=== PATIENT | male | born 1970 | race Caucasian/White ===

== ENCOUNTER → 2021-03-20 09:41 | Outpatient (BNVA) | payer MEDICARE, MEDICAID, SELFPAY | PROVIDERS: PCP Internal Medicine; Visit Provider Anesthesiology | DX: M46.1 Sacroiliitis, not elsewhere classified (principal); M96.1 Postlaminectomy syndrome, not elsewhere classified; G89.4 Chronic pain syndrome | CPT/HCPCS: 99202 ==

== ENCOUNTER 2021-04-25 06:35 | Outpatient (REF) | payer MEDICARE, MEDICAID, SELFPAY | END 2021-04-25 06:36 | disposition home or self-care (01) | LOC: HO.RADIR 06:35 | PROVIDERS: Visit Provider Anesthesiology | DX: Z13.89 Encounter for screening for other disorder (principal) | CPT/HCPCS: J3300; Q9967 ==

== ENCOUNTER 2021-05-23 06:28 | Outpatient (REF) | payer MEDICARE, MEDICAID, SELFPAY | END 2021-05-23 06:29 | disposition home or self-care (01) | LOC: HO.RADIR 06:28 | PROVIDERS: Visit Provider Anesthesiology | DX: Z13.89 Encounter for screening for other disorder (principal) ==

== ENCOUNTER 2025-06-28 14:21 | Outpatient (AMB) | payer MEDICARE, MEDICAID, SELFPAY ==
--- OUTSIDE RECORDS SUMMARY | 2024-04-15 07:34 | XMS_ITS | Encounter Summary ---
Author Organization [facility] Address [address] [place] [address] Care Team Providers Care Automated Process Operator Name Role Phone Tatyana Farias DO Primary Care Pro vider Encounter Details Date Type Department Care Team (Late st Contact Info) Description 04/15/2024 8:34 AM EDT Hospital Encounter TH HISTORIC ENCOUNTERS EASTERN CONVERSION ONLY Jennifer Cornelius MD [address] [place] [address] Social History Tobacco Use Types Packs/Day Years Used Date Smoking Tobacco: Never Smokeless Tobacco: Never Alcohol Use Standard Drinks/Week Comments No 0 (1 standard drink = 0.6 oz pur e alcohol) Housing Instability Answer Date Recorde d Are you worried that in the next 2 months you may not have stable housing? No 05/12/2025 Food Access & Nutrition Answer Date Rec orded Do you have access to a vari ety of food including fruits and vegetables? No 05/12/2025 Health Literacy Answer Date Recorded How often do you need to hav e someone help you when you read instructions, pamphlets, or other written material from your doctor or pharmacy? Never 05/12/2025 Caregiver: How often do you need to have someone help you when you read instructions, pamphlets, or other written material from your doctor or pharmacy? Not on file 05/12/2025 Financial Risk Answer Date Recorded How hard is it for you to pa y for the very basics like food, housing, medical care, and air conditioning / heating? Not very hard 05/12/2025 Transportation Answer Date Recorded Has the lack of transportati on kept you from meetings, work, or from getting things needed for daily living? No Has the lack of transportati on kept you from medical appointments or from getting medications? No 05/12/2025 Social Isolation Answer Date Recorded How often do you feel lonely or isolated from th ose around you? Never 05/12/2025 Food Risk Answer Date Recorded Within the past 12 months we worried whether our food would run out before we got money to buy more. Never true 05/12/2025 Within the past 12 months th e food we bought just didn't last and we didn't have money to get more. Never true 05/12/2025 Dependent Care Answer Date Recorded Do you need help finding or paying for care for your loved ones. For example, director of early childhood education or elderly care for an older adult? No 05/12/2025 Education Answer Date Recorded Do you think completing more education or training, like finishing a GED, going to college, or learning a trade, would be helpful for you? No 05/12/2025 Employment and Income Answer Date Recor ded During the last four weeks, have you been actively looking for work? No 05/12/2025 Living Situation Answer Date Recorded What is your living situation? Unrecognized valu e 05/12/2025 Sex and Gender Information Value Date Recorded Sex Assigned at Male 05/13/2025 10:03 AM EST Legal Sex Male 11:46 PM EST Gender Identity Not on file Sexual Orientation Not on file documented as of this encounter Last Filed Vital Signs Vital Sign Reading Time Taken Comments Blood Pressure 151/91 04/15/2024 8:59 AM EDT Sit ting Left arm Pulse 76 04/15/2024 8:59 AM EDT Temperature - - Respiratory Rate - - Oxygen Saturation - - Inhaled Oxygen Concentration - - Weight 100 kg (221 lb) 04/15/2024 8:59 AM EDT Height 170.2 cm (5' 7 ) 04/15/2024 8:59 AM EDT Body Mass Index 34.61 04/15/2024 8:59 AM EDT documented in this encounter Progress Notes * Jennifer Cornelius MD - 04/15/2024 9:00 AM EDT HPI: Chandrakant Garcia is a 54 y.o. year old male referred to our center by Lonny Gtz DO for evaluation and management of Rt sided bells palsy 54 yo male with PMH Hypertension is better now on amlodipine and hydrochlorothiazide he says ,systolic in the 140 range , anxiety , bipolar type 1, cervical , lumbar degenerative disc disease s/p multiple surgeries, referred to our clinic for evaluation of persistent weakness following Lujan's palsy in February he woke up at 3 am he had pain in his neck he was taking shower , he noticed his Rt face weakness , involvingRt eye and, patient went to the ER to be evaluated he was sent home on prednisone and Valtrex. Still has weakness and right side of the face had difficulty closing his eyes as well as facial asymmetry Patient denies any infection prior to the episode he also denies any He denies any episodes concerning for Lujan's palsy prior to this episodes He denies any symptoms associated with he is went to physical therapy to be evaluated and was handed excerices at home Patient denies any other episodes of blurry vision double vision tingling numbness or weakness any history concerning for stroke He has been struggling with paresthesias and weakness in relation to his multiple cervical and lumbar degenerative disc disease. Past Medical History: Diagnosis Date ??? Anxiety ??? Bipolar 1 disorder (HCC) ??? Cervicalgia ??? Chronic pain ??? Constipation ??? Depression ??? Elevated fasting glucose ??? Fatty liver ??? GERD (gastroesophageal reflux disease) ??? Hemangioma of liver ??? Hypertension ??? Microscopic hematuria ??? Myelomalacia (HCC) ??? Obesity Current Outpatient Medications Medication Sig Dispense Refill ??? Cholecalciferol (Vitamin D3) 50 MCG (1999 UT) TABS Take 1 tablet by mouth daily. ??? Docusate Sodium (DSS) 100 MG CAPS Bedtime ??? DULoxetine (CYMBALTA) DR capsule 30 mg Take 1 capsule (30 mg total) by mouth daily. ??? gabapentin (NEURONTIN) 300 MG capsule ??? hydroCHLOROthiazide (HYDRODIURIL) tablet 25 mg Take 1 tablet (25 mg total) by mouth daily. ??? ibuprofen 600 MG tablet Take 1 tablet (600 mg total) by mouth every 6 (six) hours as needed. ??? ibuprofen 800 MG tablet Take 1 tablet (800 mg total) by mouth. ??? omeprazole (PriLOSEC) 20 MG capsule Take 1 capsule (20 mg total) by mouth daily. ??? QUEtiapine (SEROquel) 100 MG tablet Take by mouth. ??? tiZANidine (ZANAFLEX) 4 MG tablet Take 1 tablet (4 mg total) by mouth. No current facility-administered medications for this visit. Allergies Allergen Reactions ??? Morphine Other (See Comments) Rapid heartbeat weakness Social history: Tobacco:No Alcohol No Drug use: No Used be painting cars , he is currently on disability Family history: There is no significant family history of multiple sclerosis, rheumatoid arthritis,type 1 diabetes, lupus, or other autoimmune diseases. Neurologic Exam: BP (!) 151/91 (BP Location: Left arm, Patient Position: Sitting) Pulse 76 Temp 96.6 ??F (35.9 ??C) (Temporal) Ht 5' 7 (1.702 m) Wt 100.2 kg (221 lb) BMI 34.61 kg/m?? MS: AOx3 CN: perrla,no red desaturation, fundoscopic exam normal bilaterally, V1-3 intact to LT, right facial weakness including slight weakness on right frontalis orbicularis oculi and orbicularis alex, bilateral SCM/trapezius 5/5, tongue/uvula/palate midline Motor: 4+/5 in all extremities limited by low back no Sensation: Intact to light touch, temperature, and vibration in all extremities Reflexes: 2+ in bilateral biceps and patellae, toes downgoing bilaterally Cerebellar: FNF intact bilaterally, FFM intact bilaterally, LOYD intact bilaterally, tandem gait normal, romberg negative Labs: CBC/CMP nonconcerning Ordered Imaging: All images were reviewed by me. A/P: Chandrakant Garcia is a 54 y.o. year old male referred to our center by Lonny Gtz DO for evaluation and management of Lujan's palsy with persistent right-sided facial weakness patient was treated with Valtrex and prednisone initially, he has been getting physical therapy and wasadvised for home exercises is doing eye care Discussed with the patient and his Lujan's palsy can last a few weeks to six months. Symptoms usually start to gradually improve in three weeks. Up to 80% of people fully recover and show no signs of Lujan's palsy within three months if his symptoms resolve persist will consider referring [facility] evaluation and management of possible intervention will obtain basic labs and inflammatory markers Will obtain an MRI brain to full any structural cause -Encouraged to continue exercises with physical therapy and home exercises toO Continue eye care at night lubricant consider patching his right eye -RTC in 3 months for follow up The patient and I discussed the clinical picture during today's appointment. Additional time was spent prior to the actual appointment reviewing records, lab values and imaging results and preparing documentation for today's visit. There was also time spent following the in person visit documenting, arranging for further diagnostic testing and follow-up appointments. The entire time spent in thisprocess was greater than 45minutes. The majority of the actual [id number] visit was spent counseling the patient with respect to the current neurological picture. Jennifer Cornelius MD documented in this encounter Plan of Treatment Upcoming Encounters Date Type Department Care Team (Late st Contact Info) Description 11/11/2025 8:30 AM EDT Office Visit [facility] [place] [address] [facility] [address] [place] [phone] Jennifer Cornelius MD [address] [place] [address] 12/13/2025 11:00 AM EDT Office Visit Internal Medicine - [place] [address] [facility] [address] [place] [id number] Debora Pinedo MD [address] [place] [phone] documented as of this encounter Visit Diagnoses Not on filedocumented in this encounter Care Teams Automated Process Operator Relationship Specialty Start Date End Date Tatyana Farias DO PCP - General 04/15/24 05/20/24 documented as of this encounter
--- OUTSIDE RECORDS SUMMARY | 2024-04-17 06:45 | XMS_ITS | Encounter Summary ---
Author Organization [facility] Address [address] [place] [address] Care Team Providers Care Administration Manager Name Role Phone Tatyana Fraias DO Primary Care Pro vider Encounter Details Date Type Department Care Team (Late st Contact Info) Description 04/17/2024 7:45 AM EDT Hospital Encounter TH HISTORIC ENCOUNTERS EASTERN CONVERSION ONLY Neal Hodges MD [address] [place] [address] Social History Tobacco Use Types Packs/Day Years [...] care for your loved ones. For example, children teacher or elderly care for an older adult? [...] Sign Reading Time Taken Comments Blood Pressure - - Pulse - - Temperature - - Respiratory Rate - - Oxygen Saturation - - Inhaled Oxygen Concentration - - Weight 100 kg (221 lb) 04/15/2024 8:59 AM EDT Height 170.2 cm (5' 7 ) 04/15/2024 8:59 AM EDT Body Mass Index 34.61 04/15/2024 8:59 AM EDT documented in this encounter Plan of Treatment Upcoming Encounters Date Type Department Care Team (Late st Contact Info) Description 11/11/2025 8:30 AM EDT Office Visit [address] [place] [address] Jennifer Cornelius MD [address] [place] [address] 12/13/2025 11:00 AM EDT Office Visit Internal Medicine - [place] [address] [facility] [address] [place] [address] Debora Pinedo MD [address] [place] [address] documented as of this encounter Visit Diagnoses Not on filedocumented in this encounter Care Teams Administration Manager Relationship Specialty Start Date End Date Tatyana Farias DO PCP - General 04/15/24 05/20/24 documented as of this encounter
[2025-06-28 14:26] VITALS: BMI 34.5
--- NOTE | 2025-06-28 14:26 | A.PHYSOV_ITS ---
Vital Signs 06/28/25 14:26 Height 5 ft 7 in Weight 220 lb BMI 34.5 Intake Visit Reasons: updated ref- chronic midline LBP Intake Note: Patient is a 55 year old male here for lower back pain. Scraper Operator Required: No Allergies morphine (MORPHINE) Allergy (Unknown, Verified 06/28/25 14:34) PALPATATIONS HPI Comments Details: History of Present Illness The patient is a 55 year old male presenting with persistent heavy back pain. The pain radiates into his leg and joint, as well as the groin, and he reports associated balance difficulties. He rates his current pain as a 6 out of 10. For treatment, he has tried ibuprofen 800 mg and gabapentin, neither of which provided relief. He received an injection about a year ago which provided approximately 50% pain relief. He reports an allergy to morphine and has taken prednisone in the past, after which he felt bloated. Patient has been completing physician directed home exercise plan without relief of his symptoms. This point he has failed conservative treatment. His past surgical history includes three surgeries on his neck, with the last one in 2013. He denies any history of diabetes. Most of his pain on presentation is higher in the L1-2, L2-3 area on the right. Pain Description - Location: The patient reports pain in his back that radiates to his leg and joint, as well as his groin. - Laterality: Symptoms are worse on the right side compared to the left. - Severity: The patient rates his current pain as 6 out of 10. - Quality: The pain is described as heavy and he experiences a hot sensation with pain radiating down the leg. - Exacerbating factors: Leaning back and straightening the leg cause an increase in pain. - Alleviating factors: A previous injection provided approximately 50% relief. Results - Procedural: A prior injection provided 50% pain relief. - Imaging: An older MRI is noted to show pathology that is worse higher up in the lumbar spine. [facility] Medical History (Updated 06/28/25 @ 14:56 by PRADEEP Ortez) Chronic pain syndrome Postlaminectomy syndrome, lumbar region Postlaminectomy syndrome of cervical region Sacroiliitis Surgical History History of neck surgery History of back surgery Social History (Reviewed 06/28/25 @ 14:34 by DORY Flynn Alcohol intake: current Alcohol intake frequency: does not drink Patient Tobacco Use Status: Never used Tobacco Review of Systems Narrative Review of Systems - Musculoskeletal: Reports back pain, pain in his leg and joint, and groin pain. - Neurological: Reports difficulty with balance. Reports a hot sensation with pain that travels down the leg. - Endocrine: Denies diabetes. - Allergic/Immunologic: Reports allergy to morphine. Physical Exam Exam Exam: Physical Exam - General: The patient is alert and cooperative. - Back: Patient identifies a palpable mass-like area in the midline lumbar spine with associated tenderness to palpation. Lumbar extension elicits pain with radiation into the leg. - Lower Extremities: Sensation was grossly assessed bilaterally. Motor function is grossly intact with foot and thigh movements. Seated straight leg raise is positive for back pain. Supine hip flexion and abduction/external rotation maneuvers elicit back pain. Vital Signs: BMI result Body Mass Index 34.5 Assessment & Plan Assessment & Plan (1) Postlaminectomy syndrome, lumbar region: Code(s): M96.1 - Postlaminectomy syndrome, not elsewhere classified Category: Medical (2) Postlaminectomy syndrome of cervical region: Code(s): M96.1 - Postlaminectomy syndrome, not elsewhere classified Category: Medical (3) Sacroiliitis: Code(s): M46.1 - Sacroiliitis, not elsewhere classified Category: Medical (4) Right hip pain: Code(s): M25.551 - Pain in right hip Category: Medical Plan Pain Management - Analgesia: The patient reports currently taking ibuprofen 800 mg and gabapentin with no relief. - A prior injection about a year ago provided 50% pain relief. - He rates his current pain level at a 6 out of 10. - Adverse Effects: He reports an allergy to morphine and a history of feeling bloated with prednisone. - Activities of Daily Living: The patient reports that his balance is affected. Plan Patient was informed and verbally consented to the use of an ambient scribe for clinic note documentation during this visit. 1. Chronic Low Back Pain With Radiculopathy The patient's persistent low back pain, radicular symptoms, and physical exam findings are concerning for a worsening underlying spinal condition. The location of his current pain does not seem to correlate with the findings on his previous MRI, and the previous injection may not have been in the optimal location. An updated lumbar spine MRI will be ordered to better visualize the current pathology before considering further interventions. A short, 7-day prescription for an opioid will be provided for severe breakthrough pain, with counseling to use it sparingly. Follow-up will occur after the MRI is complete to review the results and determine the best location for a potential future injection. 2. Right Hip Pain The patient reports groin pain and has pain elicited with hip maneuvers on exam, suggesting possible concomitant hip pathology. An x-ray of the right hip will be ordered to evaluate for intrinsic hip disease. Discussion Notes I had a discussion with the patient regarding his chronic back pain. I explained that while he had some relief from a prior injection, I believe we could achieve a better result with a more targeted approach. I recommended obtaining an u pdated MRI of his lumbar spine and an x-ray of his right hip to get a clearer picture of his current condition before proceeding with another injection. I explained that this would allow us to place the next shot in a more effective spot. For immediate pain management, I offered a 7-day prescription for a stronger pain medication, advising him to use it sparingly for severe pain to make it last. The patient verbalized understanding and agreed with the plan. Patient Instructions - We have ordered an MRI of your lower back and an X-ray of your right hip. Please get these scans done as soon as possible. - We are prescribing a strong pain medication for you. This is a 7-day supply. Please use this only for severe pain when other medications like ibuprofen do not work. Try to use it sparingly so that it lasts as long as possible. - After your MRI is complete, please schedule a follow-up appointment with us to go over the results and discuss the next steps for your treatment. - Continue your other current medications, such as ibuprofen, as you normally would. Orders: Orders MR lumbar spine wo/w con Today M51.16 - Intervertebral disc disorders with radiculopathy, lumbar region XR hip RT min 2V 06/28/25 M16.10 - Unilateral primary osteoarthritis, u nspecified hip MR lumbar spine wo/w con 06/28/25 M51.16 - Intervertebral disc disorders with radiculopathy, lumbar region Medications: New oxycodone-acetaminophen 5-325 mg (Percocet) Partial Fill upon patient request. 1 tab PO Q6H PRN 28 tabs 0RF pain 7 days M25.551 - Pain in right hip, M96.1 - Postlaminectomy syndrome, not elsewhere classified Coding Level of Care Code Est Pt Level 4 (03919) Diagnoses Postlaminectomy syndrome, lumbar region M96.1 Postlaminectomy syndrome of cervical region M96.1 Sacroiliitis M46.1 Right hip pain M25.551
--- OUTSIDE RECORDS SUMMARY | 2025-06-28 17:48 | XMS_ITS | Clinical Summary ---
Author Organization [facility] Address [address] [place] [address] Phone Care Team Providers Care Display Carver Name Role Phone Debora Pinedo MD Primary Care Provider [phone] Allergies Active Allergy Reactions Criticality Noted Date Comments Morphine Other 12/02/2008 Rapid heartbeat weakness Medications docusate sodium (COLACE) 100 mg capsule Bedtime 09/27/19 10 Active ibuprofen (ADVIL,MOTRIN ) 600 mg tablet Take 1 tablet (600 mg total) by mouth if needed for moderate pain or headaches. Active QUEtiapine (SEROquel) 100 mg tablet Take by mouth. 05/26/20 18 Active tiZANidine (ZANAFLEX) 4 mg tablet Take 1 tablet (4 mg total) by mouth. 03/23/20 21 Active omega-3 acid ethyl esters (LOVAZA) 1 gram capsule Take 1 capsule (1 g total) by mouth 2 (two) times a day. Active LORazepam (Ativan) 0.5 mg tablet 1 po at onset of MRI, may repeat 1 at time of MRI if needed 5 tablet 07/22/19 25 Active Additional Information Patient taking differently: 0.5 mg oral As needed, sedation, 1 po at onset of MRI, may repeat 1 at time of MRI if needed, Reported on 05/14/2025 cholecalcifer ol (VITAMIN D-3) 50 mcg (2,000 unit) tablet Take 1 tablet (2,000 Units total) by mouth 1 (one) time each day. 30 tablet 1 11/24/19 25 Active Stimulant Laxative Plus 8.6-50 mg per tablet TAKE 1 TABLET BY MOUTH DAILY 30 tablet 1 03/22/20 25 Active clotrimazole (LOTRIMIN) 1 % cream Apply topically 2 (two) times a day. 30 g 11 05/12/20 25 026 Active buPROPion SR (WELLBUTRIN SR) 100 mg 12 hr tablet Take 1 tablet (100 mg total) by mouth 2 (two) times a day. 05/04/20 25 Active carboxymethyl cellulose 1 % ophthalmic solution Apply 1 drop to each eye as needed 30 mL 12 05/14/20 25 Active ketoconazole (NIZORAL) 2 % cream Apply topically 2 (two) times a day. 30 g 2 05/18/20 25 Active hydroCHLOROth iazide (HYDRODIURIL) 25 mg tablet Take 1 tablet (25 mg total) by mouth 1 (one) time each day. 90 tablet 1 06/11/20 25 Active omeprazole (PriLOSEC) [address] capsule Take 1 capsule (20 mg total) by mouth 1 (one) time each day. 90 capsule 06/11/20 25 Active amLODIPine (NORVASC) 10 mg tabletIndicat ions:HTN (hypertension ), benign Take 1 tablet (10 mg total) by mouth 1 (one) time each day. 90 tablet 3 06/11/20 25 Active gabapentin (NEURONTIN) 300 mg capsule Take 1 capsule (300 mg total) by mouth 3 (three) times a day. 90 capsule 3 06/11/20 25 Active DULoxetine (CYMBALTA) [address] capsule Take 1 capsule (30 mg total) by mouth 1 (one) time each day. 90 capsule 1 06/11/20 25 Active cholecalcifer ol (Vitamin D3) 50 mcg (2,000 unit) tablet Take 1 tablet (2,000 Units total) by mouth 1 (one) time each day. 90 tablet 2 06/11/20 25 Active meloxicam (MOBIC) 7.5 mg tablet Take 1 tablet (7.5 mg total) by mouth 1 (one) time each day. 30 each 2 06/11/20 25 Active DULoxetine (CYMBALTA) [address] capsule TAKE 1 CAPSULE BY MOUTH DAILY 90 capsule 1 06/22/20 24 025 Discontinued(Re order) amLODIPine (NORVASC) 10 mg tabletIndicat ions:HTN (hypertension ), benign TAKE 1 TABLET BY MOUTH DAILY 90 tablet 3 08/17/19 25 025 Discontinued(Re order) omeprazole (PriLOSEC) [address] capsule Take 1 capsule (20 mg total) by mouth 1 (one) time each day. 90 capsule 11/20/19 25 025 Discontinued(Re order) gabapentin (NEURONTIN) 300 mg capsule Take 1 capsule (300 mg total) by mouth 3 (three) times a day. 90 capsule 3 11/20/19 25 025 Discontinued hydroCHLOROth iazide (HYDRODIURIL) 25 mg tablet TAKE 1 TABLET(25 MG) BY MOUTH 1 TIME EACH DAY 90 tablet 1 12/11/19 25 025 Discontinued(Re order) cholecalcifer ol (Vitamin D3) 50 mcg (2,000 unit) tablet Take 1 tablet (2,000 Units total) by mouth 1 (one) time each day. 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 HTN (hypertension), benign 07/28/2024 Gastroesophageal reflux disease without esophagi tis 07/28/2024 Chronic midline low back pain without sciatica 0 07/28/2024 Obesity (BMI 30.0-34.9) 07/28/2024 Encounters Date Type Department Care Team Description 06/11/2025 3:00 PM EST Office Visit Internal Medicine - [address] [place] [phone] Debora Pinedo MD Chronic midline low back pain without sciatica (Primary Dx); HTN (hypertension), benign; Gastroesophageal reflux disease without esophagitis; Lujan's palsy 05/18/2025 Telephone Internal Medicine - [address] [place] [phone] Mery Ontiveros MA 05/14/2025 8:30 AM EST Office Visit [facility] 175 [facility] [address] [place] [phone] Ethel Farnsworth PA Lujan's palsy (Primary Dx) 05/14/2025 7:50 AM EST Lab Draw Station - [address] [facility] [address] [facility] [address] [place] [phone] Medicare annual wellness visit, initial; Prediabetes; Encounter for lipid screening for cardiovascular disease; Dyslipidemia 05/14/2025 Results Follow-Up Internal Medicine - [place] 175 [facility] [address] [place] [address] Nicho Newell MD 05/12/2025 3:15 PM EST Office Visit Internal Medicine [facility] 175 [facility] [address] [place] [phone] Nicho Newell MD Medicare annual wellness visit, initial (Primary Dx); Routine general medical examination at a health care facility; HTN (hypertension), benign; Obesity (BMI 30.0-34.9); Gastroesophageal reflux disease without esophagitis; Other fatigue; Encounter for lipid screening for cardiovascular disease; Other abnormal glucose; Anxiety associated with depression; Bipolar 1 disorder (CMS/HCC V24, CMS/HCC V28); Constipation, unspecified constipation type; Prediabetes; Chronic midline low back pain without sciatica; Dyslipidemia; Hemangioma of liver; Lujan's palsy; Onychomycosis; Fungal infection 04/01/2025 Telephone Internal Medicine - [place] 175 [facility] [address] [place] [phone] Nilsa Michelle MA from Last 3 Months Surgical History Surgery Date Site/Laterality Comments NECK SURGERY Anterior PROCEDURE:NECK SURGERY;COMMENT:X3 last 2017 BACK SURGERY Anterior PROCEDURE:BACK SURGERY APPENDECTOMY PROCEDURE:APPENDECTOMY LEG SURGERY PROCEDURE: HISTORICAL LEG SURGERY; COMMENT: multiple stitches as a child APPENDECTOMY 2000 PROCEDURE: HISTORICAL APPENDECTOMY CERVICAL LAMINECTOMY 2009 PROCEDURE: HISTORICAL CERV LAMINECTOMY; COMMENT: C 3-6 ACDF BACK SURGERY 2010 PROCEDURE: HISTORICAL BACK SURGERY; COMMENT: L2 - L 3 lumbar fusion. L 5- S 1 fusion 2010 COLONOSCOPY 06/14/14 PROCEDURE: HISTORICAL COLONOSCOPY; COMMENT: 2 pale dimin. polyps at 15cm-> hyperplastic CERVICAL LAMINECTOMY 06/2013 PROCEDURE: HISTORICAL CERV LAMINECTOMY; COMMENT: ACDF C6-7 Medical History Medical History Date Comments GERD (gastroesophageal reflux disease) DX:GERD (gastroesophageal reflux disease) Chronic pain DX:Chronic pain Depression DX:Depression Elevated fasting glucose DX:Elev ated fasting glucose Obesity DX:Obesity Hemangioma of liver DX:Hemangiom a of liver Myelomalacia (CMS/HCC V24, C MS/HCC V28) DX:Myelomalacia (HCC) Microscopic hematuria DX:Microsc opic hematuria Fatty liver DX:Fatty liver Constipation DX:Constipation Hypertension DX:Hypertension Anxiety DX:Anxiety Bipolar 1 disorder (CMS/HCC V24, CMS/HCC V28) DX:Bipolar 1 disorder (HCC) Cervicalgia DX:Cervicalgia Cervicalgia DX:Cervicalgia HTN (hypertension) 09/18/2013 DX:HTN (hyper tension) Abnormal LFTs (liver function tests) 11/28/2016 DX:Abnormal LFTs (liver function tests) Anxiety and depression 04/21/2013 DX:Anxiet y and depression Bipolar disorder (CMS/HCC V2 4, CMS/HCC V28) 03/24/2009 DX:Bipolar disorder (HCC) Constipation 03/22/2014 DX:Constipation Lumbar disc herniation 12/23/2008 DX:Lumbar disc herniation; COMMENT: Lumbar fusion 2010 Dr Sullivan Microscopic hematuria 11/28/2016 DX:Microsc opic hematuria Panic attacks 04/21/2013 DX:Panic attacks ; COMMENT: [facility] Myelomalacia (CMS/HCC V24, C MS/HCC V28) 12/07/2016 DX:Myelomalacia (HCC); COMME NT: C 3-4, C 4-5 Fatty liver DX:Fatty liver Hemangioma of liver 03/30/2019 DX:Hemangiom a of liver Pulmonary nodule 03/30/2019 DX:Pulmonary no dule; COMMENT: Newly noted on CT 02/13/2019. 0.3 cm Left Lung Base. Per Fleischner Society guidelines optional f/u CT at 12 months if high risk patient (02/2020) Elevated liver function tests DX :Elevated liver function tests Family History Medical History Relation Name Comments Lung cancer Father Coronary artery disease Mother Glau coma, Cataract, Blindness Other cancer Mother Relation Name Status Comments Brother 1 Alive HTN Brother 2 Alive Brother 3 Alive Brother 4 Alive Daughter Alive Father DM Mother DM Sister Alive DM Son Alive Social History Tobacco Use Types Packs/Day Years Used Date Smoking Tobacco: Never Smokeless Tobacco: Never Tobacco Cessation:Counseling Given: Not Answered Alcohol Use Standard Drinks/Week Comments No 0 [...] care for your loved ones. For example, child development director or elderly care for an older adult? [...] on file Sexual Orientation Not on file Last Filed Vital Signs Vital Sign Reading Time Taken Comments Blood Pressure 136/84 06/11/2025 2:43 PM EST Pulse 83 06/11/2025 2:43 PM EST Temperature 36.4 C (97.5 F) 06/11/2025 2:43 PM EST Respiratory Rate - - Oxygen Saturation 98% 06/11/2025 2:43 PM EST Inhaled Oxygen Concentration - - Weight 102 kg (224 lb) 06/11/2025 2:43 PM EST Height 170.2 cm (5' 7 ) 01/25/2025 9:19 AM EDT Body Mass Index 35.08 01/25/2025 9:19 AM EDT Plan of Treatment Upcoming Encounters Date Type Department Care Team (Late st Contact Info) Description 11/11/2025 8:30 AM EDT Office Visit [facility] 175 [facility] [address] [place] [phone] Jennifer Cornelius MD [address] [place] [address] 12/13/2025 11:00 AM EDT Office Visit Internal Medicine [facility] 175 [facility] [address] [place] [phone] Debora Pinedo MD [address] [place] [phone] Health Maintenance Due Date Last Done Comments Drug Screen 1970 Non-Opioid Controlled Substance Agreement 1970 Hepatitis A Vaccines (1 of 2 - Risk 2-dose series) 1988 Hepatitis B Vaccines (1 of 3 - 19+ 3-dose series) 1988 Pneumococcal Vaccine: 50+ Years (2 of 2 - PCV) 2019 09/30/2009 RSV Immunization Adult Patients (1 - Risk 50-74 years 1-dose series) 2019 Zoster Vaccines (1 of 2) 2019 HIV Screening 06/16/2022 Hepatitis C Screening 06/16/2022 DTaP,Tdap,and Td Vaccines (2 - Td or Tdap) 02/13/2024 02/12/2014 COVID-19 Vaccine (2 - season) 2025 12/28/2020 Influenza Vaccine (#1) 2025 , 04/20/2016, 04/07/2015, Additional history exists Hypertension/CHF/CAD Annual BMP Blood Test 02/01/2026 02/01/2025, 07/21/2024 Colorectal Cancer Screening: FIT-DNA (Cologuard) 2026 2023 Medicare Annual Wellness Visit 05/12/2026 05/12/2025 Social Influencers of Health Screening 05/12/2026 05/12/2025 Cholesterol Screening (Lipid Panel) 05/14/2030 05/14/2025, 02/01/2025 Depression Screening Completed 05/12/2025 HIB Vaccines Aged Out No longer eligi ble based on patient's age to complete this topic HPV Vaccines Aged Out No longer eligi ble based on patient's age to complete this topic IPV Vaccines Aged Out No longer eligi ble based on patient's age to complete this topic MMR Vaccines Aged Out No longer eligi ble based on patient's age to complete this topic Meningococcal ACWY Vaccine Aged Out N o longer eligible based on patient's age to complete this topic Meningococcal B Vaccine Aged Out No l onger eligible based on patient's age to complete this topic RSV Immunization Patients Under 20 months Aged Out No longer eligible based on patient's age to complete this topic Varicella Vaccines Aged Out No longer eligible based on patient's age to complete this topic Procedures Procedure Name Priority Date/Time Associated Diagnosis Comments LIPID PANEL WITH REFLEX TO DIRECT LDL Routine 05/14/2025 7:47 AM EST Medicare annual wellness visit, initial Encounter for lipid screening for cardiovascular disease Dyslipidemia HEMOGLOBIN A1C Routine 05/14/2025 7:47 AM EST Medicare annual wellness visit, initial Prediabetes COMPREHENSIVE METABOLIC PANEL Routine 02/01/2025 1:19 PM EDT HTN (hypertension), benign Obesity (BMI 30.0-34.9) Hyperglycemia Screening for malignant neoplasm of prostate Frequent urination Vitamin D deficiency LAB COLOGUARD COLON CANCER SCREEN Routine 2023 12:51 PM EDT from Last 3 Months or Most Recently Relevant to Health Maintenance Results * (ABNORMAL) Lipid panel with reflex to direct LDL (05/14/2025 7:47 AM EST) Cholesterol 175 0 - 200 mg/dL LAB CHEMISTRY METHOD 05/14/2025 10:[address] [facility] Triglycerides 113 0 - 150 mg/dL LAB CHEMISTRY METHOD 05/14/2025 10:32 AM [facility] HDL 49 >=40 mg/dL LAB CHEMISTRY METHOD 05/14/2025 10:32 AM [facility] LDL Calculated 103(H) 0 - 100 mg/dL LAB CHEMISTRY METHOD 05/14/2025 10:[address] [facility] Comment:Estimated LDL Calcul ated using equation: Total cholesterol - HDL cholesterol - (Triglycerides/5) VLDL Cholesterol Isaac 22.6 mg/dL LAB CHEMISTRY METHOD 05/14/2025 10:[address] [facility] Non HDL Chol. (LDL+VLDL) 126 <145 mg/dL LAB CHEMISTRY METHOD 05/14/2025 10:[address] [facility] Chol/HDL Ratio 3.6 0.0 - 4.4 LAB CHEMISTRY METHOD 05/14/2025 10:32 AM [facility] Blood Venous blood specimen / Unknown Venipuncture / Unknown 05/14/2025 7:47 AM EST 05/14/2025 7:47 AM EST us Nicho Newell MD LAB BLOOD ORDERABLES Final Resul t [facility] [address] [place] [address], [place] [phone] * Hemoglobin A1c (05/14/2025 7:47 AM EST) [facility] Hemoglobin A1C 5.6 <6.5 % LAB CHEMISTRY METHOD 05/14/2025 11:[address] [facility] Mean Bld Glu Estim. 114 mg/dL LAB CHEMISTRY METHOD 05/14/2025 11:[address] [facility] Blood Venous blood specimen / Unknown Venipuncture / Unknown 05/14/2025 7:47 AM EST 05/14/2025 7:47 AM EST Nicho Newell MD LAB BLOOD ORDERABLES Final Resul t [facility] [address] [place] [address], * (ABNORMAL) Comprehensive metabolic panel (02/01/2025 1:19 PM EDT) [facility] Sodium 137 133 - 145 mmol/L LAB CHEMISTRY METHOD 02/01/2025 3:[address] [facility] Potassium 4.3 3.5 - 5.5 mmol/L LAB CHEMISTRY METHOD 02/01/2025 3:34 PM [facility] Chloride 105 96 - 110 mmol/L LAB CHEMISTRY METHOD 02/01/2025 3:[address] [facility] CO2 26 21 - 32 mmol/L LAB CHEMISTRY METHOD 02/01/2025 3:[address] [facility] Anion Gap 6 3 - 11 LAB CHEMISTRY METHOD 02/01[facility]25 [facility] Glucose 122(H) 70 - 100 mg/dL LAB CHEMISTRY METHOD 02/01/2025 3:34 PM [facility] BUN 15 5 - 25 mg/dL LAB CHEMISTRY METHOD 02/01/2025 3:[address] [facility] Creatinine 1.17 0.70 - 1.30 mg/dL LAB CHEMISTRY METHOD 02/01/2025 3:[address] [facility] eGFR 74 >=60 mL/min/1. 73m2 LAB CHEMISTRY METHOD 02/01/2025 3:[address] [facility] Comment:Calculation based on the Chronic Kidney Disease Epidemiology Collaboration (CKD-EPI) equation refit without adjustment for race. BUN/Creatinine Ratio 12.8 LAB CHEMISTRY METHOD 02/01/2025 3:[address] [facility] Calcium 9.3 8.5 - 10.5 mg/dL LAB CHEMISTRY METHOD 02/01/2025 3:[address] [facility] AST (SGOT) 18 10 - 42 unit/L LAB CHEMISTRY METHOD 02/01/2025 3:34 PM [facility] ALT (SGPT) 49 10 - 60 unit/L LAB CHEMISTRY METHOD 02/01/2025 3:34 PM [facility] Alkaline Phosphatase 81 42 - 121 unit/L LAB CHEMISTRY METHOD 02/01/2025 3:34 PM [facility] Total Protein 7.2 6.0 - 8.0 g/dL LAB CHEMISTRY METHOD 02/01/2025 3:34 PM [facility] Albumin 3.9 3.2 - 5.0 g/dL LAB CHEMISTRY METHOD 02/01/2025 3:34 PM [facility] Total Bilirubin 0.9 0.0 - 1.4 mg/dL LAB CHEMISTRY METHOD 02/01/2025 3:34 PM [facility] Blood Venous blood specimen / Unknown Venipuncture / Unknown 02/01/2025 1:19 PM EDT 02/01/2025 1:19 PM EDT us Debora Pineod MD LAB BLOOD ORDERABLES Final Res ult [facility] [address] [place] [address], * Cologuard?? colon cancer screening (2023 12:51 PM EDT) Debora Pinedo MD LAB MOLECULAR DIAGNOSTICS [facility] Final Result from Last 3 Months or Most Recently Relevant to Health Maintenance Insurance MEDICAID - [place] MEDICARE Care Teams Display Carver Relationship Specialty Start Date End Date Debora Pinedo MD 175 [facility] [address] [place] [phone] PCP - General Internal Medicine 05/21/24
--- OUTSIDE RECORDS SUMMARY | 2025-06-28 17:48 | XMS_ITS | Encounter Summary ---
Author Organization [facility] Address [address] [place] [phone] Phone Care Team Providers Care Harp Repairer Name Role Phone Unknown, Unknown MD Primary Care Provider Jame curiel Reason for Referral * Rehabilitation (Within 2 weeks) - Closed Specialty Diagnoses / Procedures Referred By Hong turner Referred To Contact Physical Medicine and Rehabilitation Diagnoses Encounter for consultation Claudia Grier MD Phone: tel: fax: mailto:[email or web address] Referral ID Status Reason Start Date Expiration Date Visits Re quested Visits Authorized [id number] Closed 09/21/2015 09/20/2016 1 1 Encounter Details Date Type Department Care Team (Latest Contact Info) Description 09/21/2015 Transcribe Orders [facility] Medical Walk-In [address] [place] [address], [address] [place] [address] Claudia Grier MD [address] [place] [phone] [email or web address] Encounter for consultation (Primary Dx) Social History Tobacco Use Types Packs/Day Years Used Date Smoking Tobacco: Never Assessed Sex and Gender Information Value Date Recorded Sex Assigned at Not on file Legal Sex Male 10:05 AM EST Gender Identity Not on file Sexual Orientation Not on file documented as of this encounter Plan of Treatment Scheduled Referrals Name Type Priority Associated Diagnoses Orde r Schedule Ambulatory referral to [facility] Physical Medicine and Rehab Outpatient Referral Routine Encounter for consultation Ordered: 09/21/2015 documented as of this encounter Visit Diagnoses Diagnosis Encounter for consultation- Primary documented in this encounter Care Teams Harp Repairer Relationship Specialty Start Date End Date Unknown, Unknown, MD PCP - General 08/02/15 documented as of this encounter Additional Source Comments The information contained in this document represents components of the legal health record. It is not the complete legal health record.[facility]
--- OUTSIDE RECORDS SUMMARY | 2025-06-28 17:48 | XMS_ITS | Clinical Summary ---
Author Organization [facility] Prior to 12/05/24 Address [address] [place] [address] Care Team Providers Care Manager Drive Name Role Phone Tatyana Gtz DO Primary Care P rovider Allergies Active Allergy Reactions Criticality Noted Date Comments Morphine Other (See Comments) 12/02/2008 Rapid heartbeat weakness Medications Medication Sig Dispensed Refills Start Date End Date Status QUEtiapine (SEROquel) 100 MG tablet Take by mouth. 0 05/26/2018 Active Cholecalciferol (Vitamin D3) 50 MCG (1999 UT) TABS Take 1 tablet by mouth daily. 0 03/17/2024 Active Docusate Sodium (DSS) 100 MG CAPS Bedtime 0 09/26/2009 Active DULoxetine (CYMBALTA) DR capsule 30 mg Take 1 capsule (30 mg total) by mouth daily. 0 10/01/2023 Active gabapentin (NEURONTIN) 300 MG capsule 0 03/21/2024 Active hydroCHLOROthiazide (HYDRODIURIL) tablet 25 mg Take 1 tablet (25 mg total) by mouth daily. 0 03/17/2024 Active ibuprofen 600 MG tablet Take 1 tablet (600 mg total) by mouth every 6 (six) hours as needed. 0 Active omeprazole (PriLOSEC) 20 MG capsule Take 1 capsule (20 mg total) by mouth daily. 0 04/26/2017 Active tiZANidine (ZANAFLEX) 4 MG tablet Take 1 tablet (4 mg total) by mouth. 0 03/23/2021 Active Social History Tobacco Use Types Packs/Day Years Used Date Smoking Tobacco: Never Assessed Tobacco Cessation:Counseling Given: Not Answered Sex and Gender Information Value Date Recorded Sex Assigned at Male 03/05/2024 9:52 AM EDT Gender Identity Not on file Sexual Orientation Not on file Job Start Date Occupation Industry Not on file Not on file Not on file Last Filed Vital Signs Vital Sign Reading Time Taken Comments Blood Pressure 151/91 04/15/2024 8:59 AM EDT Pulse 76 04/15/2024 8:59 AM EDT Temperature 35.9 C (96.6 F) 04/15/2024 8:59 AM EDT Respiratory Rate - - Oxygen Saturation 98% 03/30/2024 12:22 PM EDT Inhaled Oxygen Concentration - - Weight 100.2 kg (221 lb) 04/15/2024 8:59 AM EDT Height 170.2 cm (5' 7 ) 04/15/2024 8:59 AM EDT Body Mass Index 34.61 04/15/2024 8:59 AM EDT Plan of Treatment Health Maintenance Due Date Last Done Comments Hepatitis B Vaccines (1 of 3 - 3-dose series) 1969 Hepatitis C Screening 1969 Depression Screening 1981 BMI Counseling 1987 Preventative Health Evaluation 1987 Colon Cancer Screening (Colonoscopy) 2014 Shingrix-Zoster Vaccine (1 o f 2) 2019 DTap / Tdap / Td (2 - Td or Tdap) 02/13/2024 02/12/2014 COVID-19 Vaccine (2 - 2024-2 6 season) 2025 12/28/2020 Influenza Vaccine (#1) 2025 , 06/29/2009 Pneumococcal Vaccine Aged Out 09/30/2009 No long er eligible based on patient's age to complete this topic RSV Ped < 20 months Aged Out No longe r eligible based on patient's age to complete this topic Care Teams Manager Drive Relationship Specialty Start Date End Date Tatyana Gtz DO PCP - General Public Health Aide 05/14/17
--- OUTSIDE RECORDS SUMMARY | 2025-06-28 17:48 | XMS_ITS | Encounter Summary ---
Author Organization [facility] Address [address] [place] [address] Care Team Providers Care Proposal Editor Name Role Phone Debora Pinedo MD Primary Care Provider [phone] Encounter Details Date Type Department Care Team ([facility] st Contact Info) Description 05/14/2025 Results Follow-Up Internal Medicine - [place] [address] [facility] [address] [place] [phone] Nicho Newell MD [address] [place] [phone] Social History Tobacco Use Types Packs/Day Years [...] for your loved ones. For example, child care director or elderly care for an older [...] as of this encounter Plan of Treatment Upcoming Encounters Date Type Department Care Team (Late st Contact Info) Description 11/11/2025 8:30 AM EDT Office Visit [facility] [place] 175 [facility] [address] [place] [phone] Jennifer Cornelius MD [address] [place] [address] 12/13/2025 11:00 AM EDT Office Visit Internal Medicine [facility] 175 [facility] [address] [place] [address] Debora Pinedo MD [address] [place] [phone] documented as of this encounter Visit Diagnoses Not on filedocumented in this encounter Additional Health Concerns Assessment Noted Time PHQ-9 Depression Total Score: 1 05/12/20 25 3:42 PM EST A fall risk assessment has been complete d for the patient 05/12/2025 3:34 PM EST documented as of this encounter Care Teams Proposal Editor Relationship Specialty Start Date End Date Debora Pinedo MD [address] [place] [phone] PCP - General Internal Medicine 05/21/24 documented as of this encounter
--- OUTSIDE RECORDS SUMMARY | 2025-06-28 17:48 | XMS_ITS | Clinical Summary ---
Author Organization [facility] Address [address] [place] [id number] Phone Care Team Providers Care [employer] Principal Name Role Phone Unknown, Unknown Primary Care Provider Jame curiel Allergies Active Allergy Reactions Criticality Noted Date Comments Morphine Other (See Comments) 09/21/2015 weakness Social History Tobacco Use Types Packs/Day Years Used Date Smoking Tobacco: Never Assessed Sex and Gender Information Value Date Recorded Sex Assigned at Not on file Legal Sex Male 10:05 AM EST Gender Identity Not on file Sexual Orientation Not on file Last Filed Vital Signs Vital Sign Reading Time Taken Comments Blood Pressure 150/105 09/21/2015 1:07 PM EDT Pulse 105 09/21/2015 1:07 PM EDT Temperature 36.9 C (98.5 F) 09/21/2015 1:07 PM EDT Respiratory Rate - - Oxygen Saturation - - Inhaled Oxygen Concentration - - Weight - - Height - - Body Mass Index - - Plan of Treatment Not on file Medical Devices Not on file [facility] [place] & B [facility] A & [place] & B [facility] PART A & [place] A & B [facility] MEDICARE PART A & B Care Teams [employer] Relationship Specialty Start Date End Date Unknown, Unknown, PCP - General 08/02/15 Additional Source Comments The information contained in this document represents components of the legal health record. It is not the complete legal health record.[facility]
--- OUTSIDE RECORDS SUMMARY | 2025-06-28 17:49 | XMS_ITS ---
Author Name [facility] Organization Unknown Encounters Encounter Type Encounter Reason Primary Diagnosis Location Date Ambulatory [facility] 04/17/2024 Care Team Organization Name Specialty Phone Email Start Date End Da te [facility] ACO 02/24/2025 [facility] 10/31/2024 [facility] Debora [facility] 12/14/2022 02/24/20 [facility] Termed, PROVIDER Primary Care 05/15/202202/05
== END 2025-06-28 14:55 | disposition home or self-care (01) ==
LOC: HO.HPHYS 14:22
PROVIDERS: PCP Internal Medicine; Visit Provider Physician Assistant
DX: M96.1 Postlaminectomy syndrome, not elsewhere classified (principal); M46.1 Sacroiliitis, not elsewhere classified; M25.551 Pain in right hip
CPT/HCPCS: 99214

== ENCOUNTER → 2025-06-28 14:21 | Outpatient (BNVA) | payer MEDICARE, MEDICAID, SELFPAY | PROVIDERS: PCP Internal Medicine; Visit Provider Physician Assistant | DX: M96.1 Postlaminectomy syndrome, not elsewhere classified (principal); M46.1 Sacroiliitis, not elsewhere classified; M25.551 Pain in right hip | CPT/HCPCS: 99212 ==